=== PATIENT | male | born 1950 | race Caucasian/White ===

== ENCOUNTER → 2019-06-04 | Outpatient (CLI) | payer MEDICARE, OTHER ==
[~2019-06-04] MED LIST: CEPH500C24 PO; ESC10 PO; [UNRECOGNIZED DRUG - OTHER]
== END ==
LOC: AUD 09:00
PROVIDERS: ATTEND Otolaryngology
DX: H90.42 Sensorineural hearing loss, unilateral, left ear, with unrestricted hearing on the contralateral side (principal)
CPT/HCPCS: 92557; 92570